=== PATIENT | female | born 1960 | race Caucasian/White ===

== ENCOUNTER → 2019-03-24 | Outpatient (CLI) | payer BC | LOC: RAD 08:59 | DX: M17.12 Unilateral primary osteoarthritis, left knee (principal); M94.262 Chondromalacia, left knee ==

== ENCOUNTER → 2019-06-09 | Outpatient (CLI) | payer BC | LOC: PT 08:27 → EDSTATUS 08:30 → PT 08:30 | DX: Z98.890 Other specified postprocedural states (principal) ==

== ENCOUNTER → 2020-11-08 | Outpatient (CLI) | payer BC | LOC: MAMMO 15:04 | DX: Z12.31 Encounter for screening mammogram for malignant neoplasm of breast (principal) ==

== ENCOUNTER 2024-03-29 10:00 | Outpatient (RCR) | payer OTHER | END 2024-04-11 | disposition home or self-care (01) | LOC: PT | DX: M16.11 Unilateral primary osteoarthritis, right hip (principal); Z96.641 Presence of right artificial hip joint ==

== ENCOUNTER 2024-04-12 08:00 | Outpatient (RCR) | payer OTHER | END 2024-05-12 | LOC: PT | DX: M16.11 Unilateral primary osteoarthritis, right hip (principal); Z96.641 Presence of right artificial hip joint ==